=== PATIENT | male | born 1950 | race Caucasian/White ===

== ENCOUNTER 2023-08-20 10:40 | Outpatient (RCR) | payer MEDICARE, SELFPAY | END 2023-08-20 23:59 | disposition home or self-care (01) | LOC: CRHB 10:40 | PROVIDERS: ATTENDING PHYSICIAN Internal Medicine | DX: Z95.4 Presence of other heart-valve replacement (principal) | CPT/HCPCS: G0422; G0423 ==

== ENCOUNTER 2023-09-19 11:23 | Outpatient (RCR) | payer MEDICARE, SELFPAY | END 2023-09-19 23:59 | disposition home or self-care (01) | LOC: CRHB 11:23 | PROVIDERS: ATTENDING PHYSICIAN Internal Medicine | DX: Z95.3 Presence of xenogenic heart valve (principal) | CPT/HCPCS: G0422; G0423 ==

== ENCOUNTER 2023-10-10 10:41 | Outpatient (RCR) | payer MEDICARE, SELFPAY | END 2023-10-10 23:59 | disposition home or self-care (01) | LOC: CRHB 10:41 | PROVIDERS: ATTENDING PHYSICIAN Internal Medicine | DX: Z95.4 Presence of other heart-valve replacement (principal) | CPT/HCPCS: G0422; G0423 ==

== ENCOUNTER → 2024-01-11 13:42 | Outpatient (REF) | payer MEDICARE, SELFPAY | LOC: RCS 13:42 | PROVIDERS: ATTENDING PHYSICIAN Nurse Practitioner; FAMILY PHYSICIAN Family Medicine | DX: Z95.2 Presence of prosthetic heart valve (principal) | CPT/HCPCS: 93306 ==

== ENCOUNTER → 2024-01-31 13:09 | Outpatient (REF) | payer MEDICARE, SELFPAY ==
[2024-01-31 13:46] LABS: % Basophils 0.6 % (0-2); % Eosinophils 0.7 % (0-6); % Immature Granulocytes 0.1 % (0-0.5); % Lymphocytes 29.1 % (20.5-51.1); % Neutrophils 61.5 % (42.2-75.2); Absolute Eosinophils 0.1 10^3/uL (0-0.7); Absolute Lymphocytes 2.1 10^3/uL (1.2-3.4); Absolute Monocytes 0.6 10^3/uL (0.1-0.6); Absolute Neutrophils 4.4 10^3/uL (1.4-6.5); Hematocrit 45.1 % (39.0-52.0); Hemoglobin 15.2 g/dL (13.0-18.0); Mean Corp Hgb Conc. 33.7 g/dL (33.0-37.0); Mean Corpuscular Hgb 30.4 pg (27.0-31.0); Mean Corpuscular Volume 90.2 fL (80.0-94.0); Mean Platelet Volume 11.7 fL (7.4-10.4); Nucleated Red Blood Cells % 0 % (-); Platelet Count 91 10^3/uL (130-400); Red Cell Dist. Width 13.1 % (11.5-14.5); White Blood Cell Count 7.2 10^3/uL (4.8-10.8)
[2024-01-31 15:14] LABS: Vitamin B12 433 pg/ml (239-931)
== END ==
LOC: RAD 13:09
PROVIDERS: ATTENDING PHYSICIAN Nurse Practitioner Adult Health; FAMILY PHYSICIAN Family Medicine
DX: D69.6 Thrombocytopenia, unspecified (principal)
CPT/HCPCS: 36415; 76705; 82607; 82746; 85025; 86038

== ENCOUNTER 2024-05-18 17:12 | Emergency (ER) | payer MEDICARE, SELFPAY ==
[2024-05-18 17:15] VITALS: BP 159/78
[2024-05-18 17:29] VITALS: BMI 24.4
[2024-05-18] MEDS: OCUFLOX 1 DROP OTIC (17:42)
--- NOTE | 2024-05-18 18:02 | ED.GENMED ---
History of Present Illness
General
Chief Complaint: Ear Problem
Source: patient and spouse
Exam Limitations: none
Time Seen by Provider: 05/18/24 17:20
Nursing documentation reviewed up to this point in time: agreed with
History of Present Illness
History of Present Illness:
74-year-old male with past medical history of A-fib currently on Xarelto, heart disease presenting to the emergency department today with concerns of bleeding from the left ear after using a Q-tip multiple hours prior to arrival. Bleeding has been
ongoing for a few hours which prompted the ER visit. Denies any significant pain fevers nausea vomiting or additional concerns.
Past History
Past History
ED Past Medical History: Arrthythmia (AF Xaretlo)
Social History
Tobacco: Non-smoker
Alcohol: Occasional
Drug: None
Personal:
Living: with family
Employment: Retired
Family History
Family History: Other (CVA)
Review of Systems
Review of Systems
Allergies reviewed?: Yes
All Other Systems: ROS reviewed and negative except as documented in HPI and ROS
Phy Exam
Physical Exam
Physical Exam:
GENERAL: Alert , in no apparent distress
EYE: pupils equal and reactive
NECK: Supple, no significant adenopathy.
ENT: Left ear canal was small amount of blood normal tympanic membrane o/p clr, mmm.
CARDIAC: Regular rate and rhythm .
LUNGS: Clear breath sounds bilaterally, no acute respiratory distress, no wheezes/rales/rhonchi
ABDOMEN: Soft, without focal tenderness, no r/g, no cvat
NEUROLOGICAL: Alert and oriented, no focal neuro deficits
SKIN: Warm and dry, skin intact.
MUSCULOSKELETAL: No edema, well perfused.
PSYCH: Normal and appropriate interaction.
Course
Orders/Labs/Results
Orders:
Orders
05/18/24 17:27
Ofloxacin [Ocuflox] See Dose Instructions OTIC ONCE ONE
Vital Signs
Initial and Last Documented VS:
Initial Vital Signs
Temp Pulse Resp BP Pulse Ox
97.2 F 85 16 159/78 98
05/18/24 17:15 05/18/24 17:15 05/18/24 17:15 05/18/24 17:15 05/18/24 17:15
Last Documented Vital Signs
Temp Pulse Resp BP Pulse Ox
97.2 F 85 16 159/78 98
05/18/24 17:15 05/18/24 17:15 05/18/24 17:15 05/18/24 17:15 05/18/24 17:15
MDM/Problems Addressed
MDM/Problems Addressed:
74-year-old male presenting to the emergency department with bleeding from his left ear canal after using a Q-tip. Patient was found to have a small cut to the ear canal with a small mount of active bleeding. Ear wick was placed with control
bleeding. Stable for discharge.
*Critical Care Note
Total Time (30-74mins, 75-104mins- exclusive of procedures): Not Applicable
ED Attending Note
-
Portions of this chart may have been created with voice recognition software.� Occasional wrong word or��sound alike� substitutions may have occurred due to the inherent limitations of voice recognition software.
Discharge Plan
Departure
Patient Disposition: Home (Routine Discharge)
Date of Disposition: 05/18/24
Time of Disposition: 18:05
Patient with high blood pressure during this ER visit?: No
Condition: Good
Covid-19: Not Applicable
Discharge Problem:
Hemorrhage of ear canal
Prescriptions:
No Action
fluticasone propionate 1 SPRAY spray,suspension
2 spray intranasal DAILY
Patient Comments:
2 sprays each nostril
Xarelto 20 MG tablet
20 mg PO QPM
guaifenesin 400 MG tablet
400 mg PO DAILYPRN PRN (Reason: if congestion really bad)
ezetimibe [Zetia] 10 MG tablet
10 mg PO QPM
cetirizine 10 MG tablet
10 mg PO DAILYPRN PRN (Reason: allergies)
atorvastatin [Lipitor] 10 MG tablet
10 mg PO Q48H
Patient Comments:
On odd days
sildenafil [Viagra] 100 MG tablet
100 mg PO PRN PRN (Reason: sex)
Asmanex Twisthaler 220 MCG aerosol powdr breath activated
2 puff IH DAILY
metoprolol succinate 25 MG tablet extended release 24 hr
25 mg PO DAILY@1800
albuterol sulfate [Ventolin HFA] 90 MCG/PUFF HFA aerosol inhaler
2 puff inhalation Q4HPRN PRN (Reason: SOB)
acetaminophen 325 mg Tablet
650 mg PO Q6HPRN PRN (Reason: BARBOZA, mild pain) Qty: 0 0RF
Activity Restrictions/Additional Instructions:
You came to the emergency department today with concerns of bleeding from your ear canal. An ear wick was placed to stop bleeding. Please take this out in 1 to 2 days. Return to the emergency department for any worsening, new or concerning
symptoms.
Interventions
Interventions:
*Risk Screen - Suicide Last Done: 05/18/24 17:15
*General Assessment Last Done: 05/18/24 17:15
*Neglect/Abuse Screening Last Done: 05/18/24 17:15
Discharge Date and Time
Print Language: BELARUSIAN
[2024-05-18 18:15] VITALS: BP 122/72
== END 2024-05-18 18:16 | disposition home or self-care (01) ==
LOC: EMR 17:12
PROVIDERS: EMERGENCY PHYSICIAN Emergency Medicine; FAMILY PHYSICIAN Family Medicine
DX: H92.22 Otorrhagia, left ear (principal); I48.91 Unspecified atrial fibrillation; Z79.01 Long term (current) use of anticoagulants; Z82.3 Family history of stroke
CPT/HCPCS: 99282

== ENCOUNTER → 2024-08-29 13:25 | Outpatient (REF) | payer MEDICARE, SELFPAY | LOC: RAD 13:25 | PROVIDERS: ATTENDING PHYSICIAN Internal Medicine Infectious Disease; FAMILY PHYSICIAN Family Medicine | DX: A41.81 Sepsis due to Enterococcus (principal); R78.81 Bacteremia | CPT/HCPCS: 74177; Q9967 ==

== ENCOUNTER → 2024-09-09 06:27 | Day surgery (SDC) | payer MEDICARE, SELFPAY | LOC: GI 06:27 | PROVIDERS: ATTENDING PHYSICIAN Surgery | PROC: 0DBL8ZX Excision of Transverse Colon, Via Natural or Artificial Opening Endoscopic, Diagnostic (ICD-10-PCS; 2024-09-09) | DX: D12.3 Benign neoplasm of transverse colon (principal); K57.30 Diverticulosis of large intestine without perforation or abscess without bleeding; Z86.73 Personal history of transient ischemic attack (TIA), and cerebral infarction without residual deficits | CPT/HCPCS: 45385; 88305 ==

== ENCOUNTER → 2024-12-25 12:50 | Outpatient (REF) | payer MEDICARE, SELFPAY | LOC: RCS 12:50 | PROVIDERS: ATTENDING PHYSICIAN Internal Medicine; FAMILY PHYSICIAN Family Medicine | DX: I42.1 Obstructive hypertrophic cardiomyopathy (principal); I25.10 Atherosclerotic heart disease of native coronary artery without angina pectoris; Z95.2 Presence of prosthetic heart valve | CPT/HCPCS: 93306 ==

== ENCOUNTER → 2025-04-23 10:27 | Outpatient (REF) | payer MEDICARE, SELFPAY | LOC: RCS 10:27 | PROVIDERS: ATTENDING PHYSICIAN Internal Medicine; FAMILY PHYSICIAN Family Medicine | DX: R06.09 Other forms of dyspnea (principal) | CPT/HCPCS: 93017 ==